=== PATIENT | female | born 1995 | race African-American/Black ===

== ENCOUNTER 2022-04-24 23:45 | Emergency (ER) | payer OTHER ==
[~2022-04-24] VITALS: Ht 180.3 cm; Wt 136.1 kg
[2022-04-25] MEDS ORDERED: PREDNISONE20 MG PO (01:12)
[2022-04-25] MEDS ORDERED: AZITHROMYCIN250 MG PO (01:12)
[2022-04-25] MEDS ORDERED: VENTOLIN HFA18 GM INH (01:12)
== END 2022-04-25 01:20 | disposition home or self-care (01) ==
LOC: ER 04-25 00:07
DX: R05.9 Cough, unspecified (principal); J40 Bronchitis, not specified as acute or chronic; Z20.822 Contact with and (suspected) exposure to COVID-19; E28.2 Polycystic ovarian syndrome
CPT/HCPCS: 71046; 81025; 99283; U0002